=== PATIENT | male | born 1945 | race Caucasian/White ===

== ENCOUNTER → 2018-03-31 | Outpatient (CLI) | payer OTHER ==
--- NOTE | 2018-04-01 13:17 | PCVCIMAG ---
APPROVED REPORT Study performed: 03/31/2018 12:41:54 Exam: Stress Echocardiogram Indication: CAD s/p CABG, occluded RCA, HTN, LBBB Patient Location: Echo lab Stress Nurse: Donna Barfield RN Status: routine Ht: 5 ft 10 in HR: 93 bpm BP: 150/84 mmHg Rhythm: NSR Procedure The patient underwent an Exercise Stress Test using the Shakeel Protocol. Blood pressure, heart rate, and EKG were monitored. An Echocardiogram was performed by cutter grind tool technician in four stages in quad fashion. At peak stress, four selected images were obtained and placed side by side with resting images for comparison. Stress Test Details Stress Test: Exercise stress testing was performed using a Shakeel protocol. HR Resting HR: 93 bpmMax Heart Rate (APMHR): 150 bpm Max HR Achieved: 155 bpmTarget HR (85% APMHR): 127 bpm % of APMHR: 103 Recovery HR: 97 bpm HR response to stress: Normal HR response to stress BP Resting BP: 150/84 mmHg Max BP: 180/90 mmHg Recovery BP: 160/80 mmHg BP response to stress: Normal blood pressure response to stress. ECG Resting ECG: LBBB Stress ECG: Sinus Rhythm, LBBB ST Change: Nondiagnostic LBBB Arrhythmia: PVCs Recovery ECG: Sinus Rhythm, LBBB Recovery ST Change: Nondiagnostic LBBB Recovery Arrhythmia: PVCs Clinical Reason for Termination: Maximal effort, Dyspnea Stress Symptoms: Dyspnea, Fatigue Exercise duration: 4 min 23 sec Highest Stage Achieved: Stage 2: 2.5 mph at 12% grade. Exercise capacity: 7 METs Overall Exercise Capacity for Age: Poor Scale: Sedentary Angina Score: None Pre-Stress Echo The resting Echocardiogram showed normal left ventricular contractility with an estimated Ejection Fraction of about 50-55%. Normal wall motion in all segments on baseline images. Post-Stress Echo The stress Echocardiogram showed normal left ventricular contractility with an estimated Ejection Fraction of about 60%. Hypokinetic inferior wall motion consistent with occluded RCA with collateralization. Discordant septal motion with LBBB. Normal augmentation of wall motion in all other segments on post stress images. Conclusion Clinical Response: Non-ischemic Exercise Capacity: Below Average Stress ECG Response: Indeterminant Stress Echo Images: Ischemic The left ventricle is normal in size and mild concentric hypertrophy. Ischemic stress echocardiogram with maximal exercise stress consistent with known right coronary artery occlusion with collateraliztion. 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 Other Information Study Quality: Fair <Conclusion> The left ventricle is normal in size and mild concentric hypertrophy. Ischemic stress echocardiogram with maximal exercise stress consistent with known right coronary artery occlusion with collateraliztion. 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
== END | disposition home or self-care (01) ==
LOC: PCVCIMAG 12:49
PROVIDERS: ATTEND Internal Medicine
DX: I25.10 Atherosclerotic heart disease of native coronary artery without angina pectoris (principal); I48.0 Paroxysmal atrial fibrillation; I10 Essential (primary) hypertension; I44.7 Left bundle-branch block, unspecified
CPT/HCPCS: 93325; 93351

== ENCOUNTER → 2018-09-01 | Outpatient (CLI) | payer OTHER | END | disposition home or self-care (01) | LOC: PCVCCLINIC 14:30 | PROVIDERS: ATTEND Internal Medicine | DX: I25.10 Atherosclerotic heart disease of native coronary artery without angina pectoris (principal); I11.0 Hypertensive heart disease with heart failure; I50.32 Chronic diastolic (congestive) heart failure; I48.0 Paroxysmal atrial fibrillation; I44.7 Left bundle-branch block, unspecified; E78.5 Hyperlipidemia, unspecified; E78.00 Pure hypercholesterolemia, unspecified; Z95.1 Presence of aortocoronary bypass graft; Z79.82 Long term (current) use of aspirin | CPT/HCPCS: 93005; G0463 ==

== ENCOUNTER → 2018-10-16 | Outpatient (CLI) | payer OTHER | END | disposition home or self-care (01) | LOC: PCVCCLINIC 10:00 | PROVIDERS: ATTEND Internal Medicine | DX: I25.10 Atherosclerotic heart disease of native coronary artery without angina pectoris (principal); I13.0 Hypertensive heart and chronic kidney disease with heart failure and stage 1 through stage 4 chronic kidney disease, or unspecified chronic kidney disease; N18.3 Chronic kidney disease, stage 3 (moderate); I50.32 Chronic diastolic (congestive) heart failure; I48.0 Paroxysmal atrial fibrillation; I44.7 Left bundle-branch block, unspecified; E78.5 Hyperlipidemia, unspecified; E78.00 Pure hypercholesterolemia, unspecified; Z95.1 Presence of aortocoronary bypass graft; Z79.899 Other long term (current) drug therapy; Z79.82 Long term (current) use of aspirin; Z72.89 Other problems related to lifestyle | CPT/HCPCS: 93005; G0463 ==